=== PATIENT | male | born 1945 | race Caucasian/White ===

== ENCOUNTER 2016-10-21 00:14 | Emergency (ER) | payer MEDICARE, MEDICAID ==
[2016-10-21] MEDS ORDERED: IOPAMIDOL 300 (61%) 150 ML VIAL IV ONE (00:15)
[2016-10-21] MEDS ORDERED: METOCLOPRAMIDE HCL 5 MG/ML 2ML VIAL ONE (00:49)
[2016-10-21] MEDS ORDERED: LACTATED RINGERS 1,000 ML ONE (00:49)
[2016-10-21 00:59] LABS: ABSOLUTE NEUTROPHIL COUNT 3.5 K/mm3 (1.8-7.7); BASO % 0.2 % (0.2-1.0); HEMATOCRIT 38.9 % (32.0-52.0); HEMOGLOBIN 13.6 gm/l (14.0-18.0); IMM NEUT% 0.5 % (0-1); LYMPH # 0.3 (1.0-4.8); LYMPH % 7.4 % (15-45); MEAN CELL VOLUME 93.1 fl (80.0-94.0); MEAN CORPUSCULAR HEMOGLOBIN 32.5 pg (27.0-31.0); MEAN PLATELET VOLUME 8.6 fl (7.4-10.4); MONO # 0.5 (0.0-0.8); MONO % 10.4 % (4-12); NEUT % 81.5 % (43-75); PLATELET COUNT 120 K/mm3 (130-400); RED CELL DISTRIBUTION WIDTH 12.4 % (11.5-14.5)
[2016-10-21 01:21] LABS: ALB/GLOB RATIO 1.4 (>1.0); ALBUMIN 4.1 gm/dL (3.5-5.7)
[2016-10-21] MEDS ORDERED: ONDANSETRON 4 MG/2ML 2 ML VIAL ONE (02:05)
[2016-10-21] MEDS ORDERED: HYDROMORPHONE HCL 1 MG/ML SYRINGE ONE (02:05)
--- NOTE | 2016-10-21 08:17 | CT ---
Exam: CT abdomen and pelvis with contrast COMPARISON: None INDICATION: Diffuse abdominal pain with vomiting for 2 days. TECHNIQUE: CT examination of the abdomen and pelvis was obtained following the administration of 125 mL Isovue-300 venous contrast. FINDINGS: A moderate amount stool is present throughout the colon. There is moderate colonic diverticulosis without evidence of diverticulitis. There is no bowel obstruction, free air or free intraperitoneal fluid. Surgical changes are seen within the anterior pelvis presumably related to hernia repair. Prostate is not visualized and presumably absent. Urinary bladder unremarkable. There is no pelvic lymphadenopathy. Hepatic steatosis. Evidence of old granulomatous disease is seen within the spleen. There is some fatty infiltration of the pancreatic head and neck; pancreas otherwise unremarkable. Gallbladder within normal limits. There is no adrenal mass. There is a small low-density lesions within both kidneys which measure 12 mm in the lower pole on the right and 16 mm in the lateral interpolar region on the left which have a similar appearance and probably simply reflect cysts. Kidneys otherwise unremarkable. Limited evaluation of the lung bases demonstrate evidence of prior granulomatous disease within the right lower lobe. There is mild bibasilar scarring, with mild bronchiectasis within the right lower lobe. No worrisome lytic or blastic osseous lesion is identified. Degenerative disc disease and facet arthropathy is present within the lumbar spine, with grade 1 anterolisthesis of L3 on L4. Impression: 1. No acute findings identified to explain diffuse abdominal pain with vomiting. 2. Several chronic changes as discussed above, none of which require further imaging follow-up. Preliminary report transmitted to the emergency department from [facility] at 0202 hours 10/21/2016.
== END 2016-10-21 02:56 | disposition home or self-care (01) ==
LOC: ED 00:14
DX: R10.9 Unspecified abdominal pain (principal); R11.10 Vomiting, unspecified
CPT/HCPCS: 83690; 85025; 80053; 84443; 74177; 96375 ×2; 99284 ×2; 96374; 96361 ×2; J1170; J2765; J2405; J7120; Q9967